=== PATIENT | female | born 1970 | race Caucasian/White ===

== ENCOUNTER 2020-05-10 13:59 | Inpatient (IN) ==
[2020-05-10] MEDS ORDERED: Naloxone 0.4 MG/ML INJ IVP PRN (17:53)
[2020-05-10] MEDS ORDERED: Dextrose Gel 15 GM/37.5 ML TUBE PO PRN ×2 (18:14)
[2020-05-10] MEDS ORDERED: *HR* Dextrose 50 % in Water (Vial) 50 ML VIAL IVP PRN (18:14)
[2020-05-10] MEDS ORDERED: D5% in Water 1,000 ML IVC PRN (18:14)
[2020-05-10 19:09] LABS: Basophils % 0.2 %; Eosinophils % 0.7 %; Hematocrit 27.6 % (35.3-44.9); Hemoglobin 8.7 g/dL (11.5-15.4); Lymphocytes # 1.5 K/mcL (0.6-4.6); Lymphocytes % 33.8 %; Mean Corpuscular HGB Conc 31.5 g/dL (31.6-35.5); Mean Corpuscular Hemoglobin 29.7 pg (28.0-33.3); Mean Corpuscular Volume 94.2 fL (83.0-100.0); Mean Platelet Volume 9.4 fL (9.4-12.4); Monocytes # 0.3 K/mcL (0.0-1.3); Monocytes % 6.7 %; Neutrophils # 2.6 K/mcL (1.6-8.9); Platelet Count 147 K/mcL (140-400); Red Blood Count 2.93 M/mcL (3.82-4.97); Red Cell Distribution Width 15.1 % (11.5-14.5); Segmented Neutrophils % 58.6 %; White Blood Count 4.5 K/mcL (4.3-11.1)
[2020-05-10 19:12] LABS: Albumin 3.8 g/dL (3.5-5.7); Albumin/Globulin Ratio 1.3 (1.1-2.2); Bilirubin,Total 0.5 mg/dL (0.3-1.0); Calcium 8.3 mg/dL (8.6-10.3); Magnesium 1.6 mg/dL (1.6-2.6); Phosphorous 4.6 mg/dL (2.7-4.5); Potassium 4.5 mEq/L (3.5-5.1); Total Protein 6.8 g/dL (6.4-8.9)
[2020-05-10 19:29] LABS: Triiodothyronine (T3) Free 1.97 pg/mL (2.50-3.90)
[2020-05-10 19:34] LABS: Prolactin 12.88 ng/mL (3.80-23.20)
[2020-05-10 19:36] LABS: Bacteria,Urine Few per hpf (None-Few); Bilirubin,Urine Negative (Negative); Blood,Urine Negative (Negative); Clarity,Urine Turbid (Clear); Color,Urine Light-Yellow (Yellow); Glucose,Urine (UA) Normal (Normal); Ketones,Urine Negative (Negative); Leukocyte Esterase,Urine Large (Negative); Mucus,Urine Few per lpf (None-Few); Nitrite,Urine Negative (Negative); Protein,Urine 30 mg/dL (Neg-Trace); Specific Gravity,Urine 1.009 (1.010-1.025); Squamous Epithelial Cell,Urine Few per hpf (None-Few); Urobilinogen,Urine Normal (Normal); WBC,Urine 30-50 per hpf (0-3)
[2020-05-10] MEDS: Insulin LISPRO 300 UNITS/3 ML VIAL SQ SCH (20:35)
[2020-05-10] MEDS: 0.9 % Sodium Chloride 1,000 ML IVC SCH (20:37)
[2020-05-10 21:49] LABS: Estimated Average Glucose 171 mg/dl
[2020-05-11 05:52] LABS: Basophils % 0.7 %; Eosinophils # 0.1 K/mcL (0.0-0.6); Eosinophils % 1.3 %; Hematocrit 24.9 % (35.3-44.9); Hemoglobin 7.8 g/dL (11.5-15.4); Immature Granulocytes % 0.2 % (0-4); Lymphocytes # 1.7 K/mcL (0.6-4.6); Lymphocytes % 36.7 %; Mean Corpuscular HGB Conc 31.3 g/dL (31.6-35.5); Mean Corpuscular Hemoglobin 29.7 pg (28.0-33.3); Mean Corpuscular Volume 94.7 fL (83.0-100.0); Mean Platelet Volume 9.2 fL (9.4-12.4); Monocytes # 0.3 K/mcL (0.0-1.3); Monocytes % 7.1 %; Neutrophils # 2.4 K/mcL (1.6-8.9); Platelet Count 131 K/mcL (140-400); Red Blood Count 2.63 M/mcL (3.82-4.97); Red Cell Distribution Width 15.2 % (11.5-14.5); White Blood Count 4.5 K/mcL (4.3-11.1)
[2020-05-11 06:10] LABS: Albumin 3.5 g/dL (3.5-5.7); Albumin/Globulin Ratio 1.3 (1.1-2.2); Bilirubin,Total 0.5 mg/dL (0.3-1.0); Calcium 8.3 mg/dL (8.6-10.3); Globulin 2.8 g/dL (2.4-3.5); Potassium 4.4 mEq/L (3.5-5.1); Total Protein 6.3 g/dL (6.4-8.9)
[2020-05-11] MEDS ORDERED: Ringers Solution, Lactated 1,000 ML IVC ONE (07:25)
[2020-05-11] MEDS: cefTRIAXone 1,000 MG in Water for inj. (sterile) 10 ML IVP SCH (07:36)
[2020-05-11] MEDS: Insulin LISPRO 300 UNITS/3 ML VIAL SQ SCH ×4 (07:37→20:42)
[2020-05-11] MEDS: Ringers Solution, Lactated 1,000 ML IVC SCH ×2 (08:38→14:03)
[2020-05-11 08:49] LABS: VBG HCO3 12 mEq/L (21-27); VBG PCO2 39 mmHg (41-51); VBG PO2 113 mmHg (25-50)
[2020-05-11 10:13] LABS: Uric Acid 6.1 mg/dL (2.3-7.6)
[2020-05-11] MEDS: Ondansetron 4 MG/2 ML VIAL IVP PRN (11:13)
[2020-05-11] MEDS ORDERED: Sodium Bicarbonate 75 MEQ in 0.45 % Sodium Chloride 1,000 ML IVC SCH (14:15)
[2020-05-11] MEDS: Folic Acid 1 MG TABLET PO SCH (15:26)
[2020-05-11] MEDS: Sodium Bicarbonate 75 MEQ in 0.45 % Sodium Chloride 1,000 ML IVC SCH (15:33)
[2020-05-12] MEDS: Sodium Bicarbonate 75 MEQ in 0.45 % Sodium Chloride 1,000 ML IVC SCH ×2 (02:47→15:55)
[2020-05-12] MEDS: Levothyroxine 25 MCG TABLET PO SCH (06:05)
[2020-05-12 06:08] LABS: Hematocrit 24.9 % (35.3-44.9); Hemoglobin 7.9 g/dL (11.5-15.4); Mean Corpuscular HGB Conc 31.7 g/dL (31.6-35.5); Mean Corpuscular Hemoglobin 29.6 pg (28.0-33.3); Mean Corpuscular Volume 93.3 fL (83.0-100.0); Mean Platelet Volume 9.4 fL (9.4-12.4); Platelet Count 129 K/mcL (140-400); Red Blood Count 2.67 M/mcL (3.82-4.97); Red Cell Distribution Width 15.1 % (11.5-14.5)
[2020-05-12 06:28] LABS: Calcium 8.2 mg/dL (8.6-10.3); Magnesium 1.3 mg/dL (1.6-2.6); Phosphorous 5.1 mg/dL (2.7-4.5)
[2020-05-12 06:29] LABS: % Iron Saturation 23 % (15-50); Iron 68 mcg/dL (50-170); Transferrin 213 mg/dL (203-362)
[2020-05-12] MEDS: Folic Acid 1 MG TABLET PO SCH (07:09)
[2020-05-12 07:24] LABS: Folate 14.2 ng/mL (3.0-16.0)
[2020-05-12 09:00] LABS: Protein/Creatinine Ratio,Urine 0.9 mg/mg (0.00-0.20); Sodium, Urine 102.2 mEq/L
[2020-05-12] MEDS: cefTRIAXone 1,000 MG in Water for inj. (sterile) 10 ML IVP SCH (09:14)
[2020-05-12] MEDS: Insulin LISPRO 300 UNITS/3 ML VIAL SQ SCH ×4 (10:10→21:10)
[2020-05-12] MEDS: Acetaminophen 325 MG TABLET PO PRN ×2 (10:21→21:09)
[2020-05-12 10:22] LABS: Complement C3 103 mg/dL (87-200)
[2020-05-12] MEDS ORDERED: Sodium Bicarbonate 75 MEQ in 0.45 % Sodium Chloride 1,000 ML IVC SCH (10:45)
[2020-05-12] MEDS: 0.9 % Sodium Chloride 1,000 ML IVC SCH (10:56)
[2020-05-12] MEDS ORDERED: Ergocalciferol (VIT D2) 50,000 UNIT (1.25MG) CAP PO SCH (12:41)
[2020-05-12] MEDS: Ondansetron 4 MG/2 ML VIAL IVP PRN (21:09)
[2020-05-13] MEDS: Levothyroxine 25 MCG TABLET PO SCH (06:05)
[2020-05-13] MEDS: Insulin LISPRO 300 UNITS/3 ML VIAL SQ SCH ×4 (07:09→20:37)
[2020-05-13] MEDS: Folic Acid 1 MG TABLET PO SCH (07:09)
[2020-05-13] MEDS: Acetaminophen 325 MG TABLET PO PRN ×2 (07:13→20:01)
[2020-05-13 08:54] LABS: Hematocrit 24.8 % (35.3-44.9); Mean Corpuscular HGB Conc 32.3 g/dL (31.6-35.5); Mean Corpuscular Hemoglobin 29.5 pg (28.0-33.3); Mean Corpuscular Volume 91.5 fL (83.0-100.0); Mean Platelet Volume 9.2 fL (9.4-12.4); Platelet Count 139 K/mcL (140-400); Red Blood Count 2.71 M/mcL (3.82-4.97); White Blood Count 4.5 K/mcL (4.3-11.1)
[2020-05-13] MEDS: cefTRIAXone 1,000 MG in Water for inj. (sterile) 10 ML IVP SCH (08:55)
[2020-05-13 08:56] LABS: Prothrombin Time 11.4 Seconds (9.4-12.1)
[2020-05-13 08:57] LABS: Prothrombin Time 11.4 Seconds (9.4-12.1)
[2020-05-13 09:10] LABS: Calcium 8.8 mg/dL (8.6-10.3); Potassium 3.7 mEq/L (3.5-5.1)
[2020-05-13 09:11] LABS: Calcium 8.7 mg/dL (8.6-10.3); Magnesium 2.2 mg/dL (1.6-2.6); Phosphorous 4.8 mg/dL (2.7-4.5); Potassium 3.8 mEq/L (3.5-5.1)
[2020-05-13] MEDS ORDERED: 0.9 % Sodium Chloride 500 ML ONE (11:49)
[2020-05-13] MEDS ORDERED: *HR* FentaNYL (PF) 100 MCG/2 ML VIAL ONE (12:03)
[2020-05-13] MEDS ORDERED: *HR* Midazolam HCl 2 MG/2 ML VIAL ONE (12:04)
[2020-05-13] MEDS ORDERED: *HR* FentaNYL (PF) 100 MCG/2 ML VIAL IVP ONE (12:04)
[2020-05-13] MEDS ORDERED: *HR* Midazolam HCl 2 MG/2 ML VIAL IVP ONE (12:04)
[2020-05-13] MEDS: Ondansetron 4 MG/2 ML VIAL IVP PRN (12:42)
[2020-05-13] MEDS: amLODIPine 5 MG TABLET PO SCH (14:40)
[2020-05-13] MEDS ORDERED: *HR* HYDROcodone/Acet 5/325 mg TABLET PO ONE (17:06)
[2020-05-14 01:45] LABS: Hematocrit 23.9 % (35.3-44.9); Hemoglobin 7.8 g/dL (11.5-15.4); Mean Corpuscular HGB Conc 32.6 g/dL (31.6-35.5); Mean Corpuscular Hemoglobin 29.9 pg (28.0-33.3); Mean Corpuscular Volume 91.6 fL (83.0-100.0); Mean Platelet Volume 9.7 fL (9.4-12.4); Platelet Count 153 K/mcL (140-400); Red Blood Count 2.61 M/mcL (3.82-4.97); Red Cell Distribution Width 15.1 % (11.5-14.5); White Blood Count 4.4 K/mcL (4.3-11.1)
[2020-05-14 01:59] LABS: Calcium 8.7 mg/dL (8.6-10.3); Phosphorous 4.9 mg/dL (2.7-4.5); Potassium 3.8 mEq/L (3.5-5.1)
[2020-05-14] MEDS: Levothyroxine 25 MCG TABLET PO SCH (06:41)
[2020-05-14] MEDS: amLODIPine 5 MG TABLET PO SCH (08:17)
[2020-05-14] MEDS: Folic Acid 1 MG TABLET PO SCH (08:17)
[2020-05-14] MEDS: Insulin LISPRO 300 UNITS/3 ML VIAL SQ SCH (08:19)
[2020-05-14] MEDS ORDERED: Cefdinir 300 MG CAPSULE PO SCH (09:00)
[2020-05-14 10:32] VITALS: BP 155/84
[2020-05-14] MEDS: Ondansetron 4 MG/2 ML VIAL IVP PRN (10:41)
== END 2020-05-14 11:23 | disposition home or self-care (01) | DRG 469 ==
LOC: 2ANU → SUATTDRO 15:39
PROVIDERS: ADMIT Family Medicine; ATTEND Family Medicine

== ENCOUNTER 2020-09-10 16:29 | Observation (INO) ==
[2020-09-10] MEDS ORDERED: Ondansetron 4 MG/2 ML VIAL IVP PRN (20:06)
[2020-09-10] MEDS ORDERED: Acetaminophen 325 MG TABLET PO PRN (20:06)
[2020-09-10] MEDS ORDERED: Naloxone 0.4 MG/ML INJ IVP PRN (20:06)
[2020-09-10] MEDS ORDERED: *HR* HYDROcodone/Acet 5/325 mg TABLET PO PRN (20:06)
[2020-09-10 20:32] LABS: Basophils % 0.4 %; Hematocrit 29.4 % (35.3-44.9); Hemoglobin 9.6 g/dL (11.5-15.4); Immature Granulocytes % 0.3 % (0-4); Lymphocytes # 0.7 K/mcL (0.6-4.6); Lymphocytes % 10.2 %; Mean Corpuscular HGB Conc 32.7 g/dL (31.6-35.5); Mean Corpuscular Volume 91.9 fL (83.0-100.0); Mean Platelet Volume 9.4 fL (9.4-12.4); Monocytes # 0.1 K/mcL (0.0-1.3); Monocytes % 2.1 %; Neutrophils # 5.8 K/mcL (1.6-8.9); Platelet Count 162 K/mcL (140-400); Red Cell Distribution Width 13.7 % (11.5-14.5); White Blood Count 6.7 K/mcL (4.3-11.1)
[2020-09-10 20:34] LABS: VBG HCO3 14 mEq/L (21-27); VBG PCO2 29 mmHg (41-51); VBG PH 7.28 pH Units (7.32-7.42); VBG PO2 148 mmHg (25-50)
[2020-09-10] MEDS ORDERED: D5% in 0.45% NACL 1,000 ML IVC PRN (20:34)
[2020-09-10 20:36] LABS: Prothrombin Time 12.1 Seconds (9.4-12.1)
[2020-09-10] MEDS ORDERED: Insulin Human Regular 100 UNIT in 0.9 % Sodium Chloride 100 ML IVC SCH (20:45)
[2020-09-10 20:55] LABS: Alanine Aminotransferase 11 Units/L (7-52); Albumin 4.2 g/dL (3.5-5.7); Albumin/Globulin Ratio 1.2 (1.1-2.2); Alkaline Phosphatase 106 Units/L (34-104); Aspartate Amino Transferase 10 Units/L (13-39); BUN/Creatinine Ratio 16 (6-26); Bilirubin,Total 0.6 mg/dL (0.3-1.0); Blood Urea Nitrogen 44 mg/dL (6-20); Carbon Dioxide 12 mEq/L (23-29); Chloride 116 mEq/L (98-107); Cholesterol 173 mg/dL (< 200); Globulin 3.5 g/dL (2.4-3.5); Glucose 147 mg/dL (70-105); HDL Cholesterol 57 mg/dL (40-59); LDL Cholesterol,Calculated 91 mg/dL (< 100); Magnesium 1.3 mg/dL (1.6-2.6); Osmolality,Calculated 304 (280-300); Potassium 3.7 mEq/L (3.5-5.1); Sodium 140 mEq/L (136-145); Total Protein 7.7 g/dL (6.4-8.9); Triglycerides 127 mg/dL (< 150); Troponin I < 0.03 ng/mL (< 0.04); eGFR For African Americans 22 (> 60); eGFR For Non-African Americans 18 (> 60)
[2020-09-10] MEDS: D5% in 0.45% NACL w KCl 20 MEQ/1,000 ML MLS IVC PRN (21:43)
[2020-09-10] MEDS: *HR* Heparin 5,000 UNIT/ML VIAL SQ SCH (21:52)
[2020-09-10] MEDS ORDERED: Metoclopramide 10 MG/2 ML VIAL IVP PRN (22:02)
[2020-09-10 22:32] LABS: Calcium 8.9 mg/dL (8.6-10.3); Potassium 3.9 mEq/L (3.5-5.1)
[2020-09-11 01:16] LABS: Basophils % 0.2 %; Hematocrit 25.6 % (35.3-44.9); Hemoglobin 8.3 g/dL (11.5-15.4); Immature Granulocytes % 0.5 % (0-4); Lymphocytes # 0.8 K/mcL (0.6-4.6); Mean Corpuscular HGB Conc 32.4 g/dL (31.6-35.5); Mean Corpuscular Hemoglobin 29.5 pg (28.0-33.3); Mean Corpuscular Volume 91.1 fL (83.0-100.0); Mean Platelet Volume 9.8 fL (9.4-12.4); Monocytes # 0.3 K/mcL (0.0-1.3); Monocytes % 3.6 %; Neutrophils # 7.1 K/mcL (1.6-8.9); Platelet Count 159 K/mcL (140-400); Red Blood Count 2.81 M/mcL (3.82-4.97); Red Cell Distribution Width 13.7 % (11.5-14.5); Segmented Neutrophils % 85.7 %; White Blood Count 8.2 K/mcL (4.3-11.1)
[2020-09-11 01:33] LABS: Calcium 8.5 mg/dL (8.6-10.3); Potassium 3.4 mEq/L (3.5-5.1)
[2020-09-11] MEDS: D5% in 0.45% NACL w KCl 20 MEQ/1,000 ML MLS IVC PRN ×3 (01:55→11:22)
[2020-09-11 03:22] LABS: Calcium 8.7 mg/dL (8.6-10.3); Potassium 3.4 mEq/L (3.5-5.1)
[2020-09-11] MEDS: *HR* Dextrose 50 % in Water (Vial) 50 ML VIAL IVP PRN ×2 (03:27→05:28)
[2020-09-11] MEDS: *HR* Heparin 5,000 UNIT/ML VIAL SQ SCH ×3 (06:19→21:00)
[2020-09-11 06:41] LABS: VBG HCO3 15 mEq/L (21-27); VBG PCO2 32 mmHg (41-51); VBG PH 7.27 pH Units (7.32-7.42); VBG PO2 183 mmHg (25-50)
[2020-09-11 07:03] LABS: Calcium 8.5 mg/dL (8.6-10.3); Potassium 4.1 mEq/L (3.5-5.1)
[2020-09-11] MEDS: 0.45 % Sodium Chloride w/KCl 20 MEQ/1,000 ML MLS IVC SCH ×3 (08:04→13:14)
[2020-09-11 10:40] LABS: VBG HCO3 15 mEq/L (21-27); VBG PCO2 37 mmHg (41-51); VBG PH 7.21 pH Units (7.32-7.42); VBG PO2 193 mmHg (25-50)
[2020-09-11 10:54] LABS: Calcium 8.2 mg/dL (8.6-10.3); Potassium 4.2 mEq/L (3.5-5.1)
[2020-09-11] MEDS ORDERED: 0.9 % Sodium Chloride 1,000 ML IVC SCH (12:00)
[2020-09-11] MEDS: Insulin DETEMIR 100 UNIT/ML X5UNITS SUBQ SCH (13:08)
[2020-09-11] MEDS ORDERED: Dextrose Gel 15 GM/37.5 ML TUBE PO PRN ×2 (13:16)
[2020-09-11] MEDS ORDERED: *HR* Dextrose 50 % in Water (Vial) 50 ML VIAL IVP PRN (13:16)
[2020-09-11] MEDS ORDERED: D5% in Water 1,000 ML IVC PRN (13:16)
[2020-09-11 15:03] LABS: Calcium 8.2 mg/dL (8.6-10.3); Potassium 4.2 mEq/L (3.5-5.1)
[2020-09-11] MEDS: Insulin LISPRO 300 UNITS/3 ML VIAL SUBQ SCH (16:04)
[2020-09-11] MEDS ORDERED: Insulin LISPRO 300 UNITS/3 ML VIAL SUBQ SCH (21:00)
[2020-09-12] MEDS: *HR* Heparin 5,000 UNIT/ML VIAL SQ SCH (07:01)
[2020-09-12] MEDS: Insulin LISPRO 300 UNITS/3 ML VIAL SUBQ SCH ×2 (08:05→08:37)
[2020-09-12 08:09] LABS: Basophils % 0.6 %; Eosinophils # 0.1 K/mcL (0.0-0.6); Hematocrit 26.5 % (35.3-44.9); Hemoglobin 8.1 g/dL (11.5-15.4); Immature Granulocytes % 0.1 % (0-4); Lymphocytes # 2.5 K/mcL (0.6-4.6); Lymphocytes % 37.5 %; Mean Corpuscular HGB Conc 30.6 g/dL (31.6-35.5); Mean Corpuscular Hemoglobin 29.3 pg (28.0-33.3); Mean Platelet Volume 9.1 fL (9.4-12.4); Monocytes # 0.5 K/mcL (0.0-1.3); Monocytes % 7.2 %; Neutrophils # 3.6 K/mcL (1.6-8.9); Platelet Count 131 K/mcL (140-400); Red Blood Count 2.76 M/mcL (3.82-4.97); Segmented Neutrophils % 53.6 %; White Blood Count 6.8 K/mcL (4.3-11.1)
[2020-09-12 08:28] LABS: Calcium 8.7 mg/dL (8.6-10.3); Potassium 4.3 mEq/L (3.5-5.1)
[2020-09-12] MEDS: Insulin DETEMIR 100 UNIT/ML X5UNITS SUBQ SCH (08:36)
[2020-09-12 09:15] LABS: Estimated Average Glucose 189 mg/dl; Hemoglobin A1C 8.2 %
[2020-09-12 10:51] VITALS: BP 151/85
== END 2020-09-12 13:06 | disposition home or self-care (01) ==
LOC: 2NNU
PROVIDERS: ADMIT Internal Medicine; ATTEND Internal Medicine

== ENCOUNTER 2022-01-15 18:32 | Inpatient (IN) ==
[2022-01-15 22:48] LABS: VBG HCO3 8 mEq/L (21-27); VBG PCO2 34 mmHg (41-51); VBG PH 6.99 pH Units (7.32-7.42); VBG PO2 40 mmHg (25-50)
[2022-01-15 22:58] LABS: Calcium 9.3 mg/dL (8.6-10.3); Potassium 5.4 mEq/L (3.5-5.1)
[2022-01-15] MEDS ORDERED: Ringers Solution, Lactated 1,000 ML IVC ONE (23:34)
[2022-01-16] MEDS: Sodium Bicarbonate 150 MEQ in Water for inj. (sterile) 1,000 ML IVC SCH ×3 (01:05→20:20)
[2022-01-16] MEDS ORDERED: Acetaminophen 325 MG TABLET PO PRN (02:28)
[2022-01-16] MEDS ORDERED: Melatonin 3 MG TABLET PO PRN (02:28)
[2022-01-16] MEDS ORDERED: Naloxone 0.4 MG/ML INJ IVP PRN (02:28)
[2022-01-16] MEDS ORDERED: Ringers Solution, Lactated 1,000 ML IVC ONE ×2 (02:36→04:46)
[2022-01-16] MEDS ORDERED: Calcium Gluconate 1gm/50mL 1 GM/50 ML BAG IVPB ONE (02:36)
[2022-01-16] MEDS: Ondansetron 4 MG/2 ML VIAL IVP PRN (03:12)
[2022-01-16 03:40] LABS: Basophils % 0.7 %; Eosinophils # 0.1 K/mcL (0.0-0.6); Eosinophils % 1.8 %; Hematocrit 32.3 % (35.3-44.9); Immature Granulocytes % 0.2 % (0-4); Lymphocytes # 1.4 K/mcL (0.6-4.6); Lymphocytes % 23.3 %; Mean Corpuscular Hemoglobin 29.5 pg (28.0-33.3); Mean Corpuscular Volume 95.3 fL (83.0-100.0); Mean Platelet Volume 9.7 fL (9.4-12.4); Monocytes # 0.3 K/mcL (0.0-1.3); Monocytes % 5.6 %; Neutrophils # 4.2 K/mcL (1.6-8.9); Platelet Count 132 K/mcL (140-400); Red Blood Count 3.39 M/mcL (3.82-4.97); Red Cell Distribution Width 15.9 % (11.5-14.5); Segmented Neutrophils % 68.4 %; White Blood Count 6.1 K/mcL (4.3-11.1)
[2022-01-16 03:51] LABS: INR 1.1; Prothrombin Time 11.7 Seconds (9.4-12.1)
[2022-01-16 04:00] LABS: Albumin 3.8 g/dL (3.5-5.7); Albumin/Globulin Ratio 1.2 (1.1-2.2); Bilirubin,Total 0.9 mg/dL (0.3-1.0); Calcium 8.7 mg/dL (8.6-10.3); Globulin 3.1 g/dL (2.4-3.5); Magnesium 1.9 mg/dL (1.6-2.6); Phosphorous 5.7 mg/dL (2.7-4.5); Potassium 4.4 mEq/L (3.5-5.1); Total Protein 6.9 g/dL (6.4-8.9)
[2022-01-16] MEDS ORDERED: Dextrose Gel 15 GM/37.5 ML TUBE PO PRN ×2 (04:45)
[2022-01-16] MEDS ORDERED: *HR* Dextrose 50 % in Water (Syg) 50 ML SYRINGE IVP PRN (04:45)
[2022-01-16] MEDS ORDERED: D5% in Water 1,000 ML IVC PRN (04:45)
[2022-01-16] MEDS: Insulin LISPRO 300 UNITS/3 ML VIAL SUBQ SCH ×4 (07:22→21:05)
[2022-01-16 07:42] LABS: Bacteria,Urine Few per hpf (None-Few); Bilirubin,Urine Negative (Negative); Blood,Urine Negative (Negative); Clarity,Urine Clear (Clear); Color,Urine Colorless (Yellow); Glucose,Urine (UA) Normal (Normal); Ketones,Urine Negative (Negative); Leukocyte Esterase,Urine Large (Negative); Mucus,Urine Few per lpf (None-Few); Nitrite,Urine Negative (Negative); Protein,Urine Trace mg/dL (Neg-Trace); RBC,Urine 0-3 per hpf (0-3); Specific Gravity,Urine 1.007 (1.010-1.025); Squamous Epithelial Cell,Urine Moderate per hpf (None-Few); Urobilinogen,Urine Normal (Normal); WBC,Urine 30-50 per hpf (0-3)
[2022-01-16 08:01] LABS: Sodium, Urine 64.4 mEq/L
[2022-01-16 10:28] LABS: Calcium 8.4 mg/dL (8.6-10.3); Potassium 3.6 mEq/L (3.5-5.1)
[2022-01-16 16:11] LABS: Adenovirus F 40/41 PCR Not detected (Not detect); Astrovirus PCR Not detected (Not detect); C.difficile Toxin A/B Gene PCR Not detected (Not detect); Campylobacter by PCR Not detected (Not detect); Cryptosporidium by PCR Not detected (Not detect); Cyclospora cayetanensis PCR Not detected (Not detect); Entamoeba histolytica PCR Not detected (Not detect); Enteroaggregative E.coli(EAEC) Not detected (Not detect); Enteropathogenic E.coli(EPEC) Not detected (Not detect); Enterotoxigenic E.coli (ETEC) Not detected (Not detect); Giardia lamblia PCR Not detected (Not detect); Norovirus GI/GII PCR Not detected (Not detect); Plesiomonas shigelloides PCR Not detected (Not detect); Rotavirus A PCR Not detected (Not detect); Salmonella PCR Not detected (Not detect); Sapovirus PCR Not detected (Not detect); Shig/EnteroinvasiveE coli EIEC Not detected (Not detect); Shigalike tox-prod E coli STEC Not detected (Not detect); Vibrio PCR Not detected (Not detect); Vibrio cholerae PCR Not detected (Not detect); Yersinia enterocolitica PCR Not detected (Not detect)
[2022-01-17] MEDS: Insulin LISPRO 300 UNITS/3 ML VIAL SUBQ SCH ×3 (05:29→16:46)
[2022-01-17 05:33] LABS: Basophils # 0.1 K/mcL (0.0-0.2); Basophils % 0.8 %; Eosinophils # 0.1 K/mcL (0.0-0.6); Eosinophils % 1.6 %; Hematocrit 28.7 % (35.3-44.9); Hemoglobin 9.2 g/dL (11.5-15.4); Immature Granulocytes % 0.3 % (0-4); Lymphocytes # 2.1 K/mcL (0.6-4.6); Lymphocytes % 32.8 %; Mean Corpuscular HGB Conc 32.1 g/dL (31.6-35.5); Mean Corpuscular Hemoglobin 29.1 pg (28.0-33.3); Mean Corpuscular Volume 90.8 fL (83.0-100.0); Mean Platelet Volume 10.1 fL (9.4-12.4); Monocytes # 0.5 K/mcL (0.0-1.3); Monocytes % 8.6 %; Neutrophils # 3.5 K/mcL (1.6-8.9); Platelet Count 120 K/mcL (140-400); Red Blood Count 3.16 M/mcL (3.82-4.97); Red Cell Distribution Width 15.4 % (11.5-14.5); Segmented Neutrophils % 55.9 %; White Blood Count 6.3 K/mcL (4.3-11.1)
[2022-01-17 05:41] LABS: VBG HCO3 27 mEq/L (21-27); VBG PCO2 37 mmHg (41-51); VBG PH 7.47 pH Units (7.32-7.42); VBG PO2 209 mmHg (25-50)
[2022-01-17 05:47] LABS: Phosphorous 4.1 mg/dL (2.7-4.5); Potassium 3.1 mEq/L (3.5-5.1)
[2022-01-17] MEDS: Sodium Bicarbonate 150 MEQ in Water for inj. (sterile) 1,000 ML IVC SCH ×2 (05:51→16:49)
[2022-01-17] MEDS: Levothyroxine 25 MCG TABLET PO SCH (05:51)
[2022-01-17] MEDS: Cyanocobalamin (B-12) 1,000 MCG TABLET PO SCH (08:46)
[2022-01-17] MEDS: Ondansetron 4 MG/2 ML VIAL IVP PRN (11:14)
[2022-01-17] MEDS: 0.9 % Sodium Chloride 1,000 ML IVC SCH (12:33)
[2022-01-17] MEDS ORDERED: Ondansetron 4 MG/2 ML VIAL IVP PRN (14:42)
[2022-01-17] MEDS ORDERED: *HR* Promethazine 25 MG/ML VIAL IM PRN (14:42)
[2022-01-17] MEDS ORDERED: Insulin LISPRO 300 UNITS/3 ML VIAL SUBQ SCH (21:00)
[2022-01-18] MEDS: 0.9 % Sodium Chloride 1,000 ML IVC SCH (01:21)
[2022-01-18 05:41] LABS: Hematocrit 30.2 % (35.3-44.9); Hemoglobin 9.2 g/dL (11.5-15.4); Mean Corpuscular HGB Conc 30.5 g/dL (31.6-35.5); Mean Corpuscular Hemoglobin 28.8 pg (28.0-33.3); Mean Corpuscular Volume 94.7 fL (83.0-100.0); Mean Platelet Volume 10.8 fL (9.4-12.4); Platelet Count 104 K/mcL (140-400); Red Blood Count 3.19 M/mcL (3.82-4.97); Red Cell Distribution Width 15.2 % (11.5-14.5); White Blood Count 6.5 K/mcL (4.3-11.1)
[2022-01-18] MEDS: Levothyroxine 25 MCG TABLET PO SCH (05:41)
[2022-01-18 05:58] LABS: Calcium 8.3 mg/dL (8.6-10.3); Magnesium 1.4 mg/dL (1.6-2.6); Phosphorous 3.5 mg/dL (2.7-4.5); Potassium 3.4 mEq/L (3.5-5.1)
[2022-01-18 07:12] VITALS: BP 142/75; PULSE 73; TEMP 98.2; O2SAT 98
[2022-01-18] MEDS: Insulin LISPRO 300 UNITS/3 ML VIAL SUBQ SCH (07:51)
[2022-01-18] MEDS: Cyanocobalamin (B-12) 1,000 MCG TABLET PO SCH (07:52)
[2022-01-18] MEDS ORDERED: Potassium Chloride Elixir 20 MEQ/15 ML UDC PO ONE (08:13)
[2022-01-18] MEDS ORDERED: cephALEXin 500 MG CAPSULE PO SCH (09:45)
== END 2022-01-18 12:39 | disposition home or self-care (01) | DRG 470 ==
LOC: 2NNU 18:32 → EMEROOARM 18:32 → SUATTDRO 01-16 01:02 → 2NNU 01-16 01:37 → SUATTDRO 01-16 08:02 → 2ANU 01-16 11:01
PROVIDERS: ADMIT Internal Medicine; ATTEND Student in an Organized Health Care Education/Training Program

== ENCOUNTER 2022-02-11 14:20 | Inpatient (IN) ==
[2022-02-11 15:18] LABS: Bacteria,Urine Few per hpf (None-Few); Bilirubin,Urine Negative (Negative); Blood,Urine Trace (Negative); Clarity,Urine Turbid (Clear); Color,Urine Light-Yellow (Yellow); Glucose,Urine (UA) >=1000 mg/dL (Normal); Ketones,Urine Trace mg/dL (Negative); Leukocyte Esterase,Urine Moderate (Negative); Mucus,Urine Few per lpf (None-Few); Nitrite,Urine Negative (Negative); Protein,Urine 100 mg/dL (Neg-Trace); RBC,Urine 0-3 per hpf (0-3); Specific Gravity,Urine 1.009 (1.010-1.025); Squamous Epithelial Cell,Urine Few per hpf (None-Few); Urobilinogen,Urine Normal (Normal); WBC,Urine 15-30 per hpf (0-3)
[2022-02-11 15:55] LABS: Basophils % 0.4 %; Hematocrit 35.4 % (35.3-44.9); Hemoglobin 10.5 g/dL (11.5-15.4); Immature Granulocytes % 0.5 % (0-4); Lymphocytes # 0.6 K/mcL (0.6-4.6); Mean Corpuscular HGB Conc 29.7 g/dL (31.6-35.5); Mean Corpuscular Hemoglobin 29.3 pg (28.0-33.3); Mean Corpuscular Volume 98.9 fL (83.0-100.0); Mean Platelet Volume 10.5 fL (9.4-12.4); Monocytes # 0.2 K/mcL (0.0-1.3); Monocytes % 1.8 %; Neutrophils # 7.6 K/mcL (1.6-8.9); Nucleated Red Blood Cells 0.2 /100 WBC (0); Platelet Count 150 K/mcL (140-400); Red Blood Count 3.58 M/mcL (3.82-4.97); Red Cell Distribution Width 14.1 % (11.5-14.5); Segmented Neutrophils % 90.3 %; White Blood Count 8.4 K/mcL (4.3-11.1)
[2022-02-11 16:30] LABS: Calcium 9.1 mg/dL (8.6-10.3); Potassium 4.7 mEq/L (3.5-5.1)
[2022-02-11] MEDS ORDERED: Ringers Solution, Lactated 2,000 ML IVC ONE (16:47)
[2022-02-11] MEDS ORDERED: Ondansetron 4 MG/2 ML VIAL ONE (17:01)
[2022-02-11] MEDS ORDERED: Ondansetron 4 MG/2 ML VIAL IVP ONE (17:15)
[2022-02-11 17:37] LABS: VBG HCO3 8 mEq/L (21-27); VBG PCO2 32 mmHg (41-51); VBG PH 7.03 pH Units (7.32-7.42); VBG PO2 75 mmHg (25-50)
[2022-02-11 18:43] LABS: Albumin 4.4 g/dL (3.5-5.7); Albumin/Globulin Ratio 1.3 (1.1-2.2); Bilirubin,Direct 0.2 mg/dL (0.0-0.2); Bilirubin,Indirect 0.6 mg/dL (0.0-1.0); Bilirubin,Total 0.8 mg/dL (0.3-1.0); Globulin 3.3 g/dL (2.4-3.5); Total Protein 7.7 g/dL (6.4-8.9)
[2022-02-11 18:51] LABS: Influenza A PCR Negative (Negative); Influenza B PCR Negative (Negative); Resp. Syncytial Virus PCR Negative (Negative)
[2022-02-11 18:54] LABS: SARS-CoV-2 by PCR (In House) Negative (Negative)
[2022-02-11] MEDS ORDERED: Insulin Regular, Human 100 UNIT/ML IV ONE (18:54)
[2022-02-11] MEDS ORDERED: *HR* Dextrose 50 % in Water (Syg) 50 ML SYRINGE IVP PRN ×2 (18:54→20:04)
[2022-02-11] MEDS ORDERED: Metoclopramide 10 MG/2 ML VIAL IVP ONE (18:59)
[2022-02-11] MEDS ORDERED: 0.45 % Sodium Chloride w/KCl 20 MEQ/1,000 ML MLS IVC SCH (19:00)
[2022-02-11] MEDS ORDERED: cefTRIAXone 2,000 MG in 0.9 % Sodium Chloride 20 ML IVP ONE (19:20)
[2022-02-11] MEDS ORDERED: Ondansetron 4 MG/2 ML VIAL IVP PRN (19:54)
[2022-02-11] MEDS ORDERED: Naloxone 0.4 MG/ML INJ IVP PRN (19:54)
[2022-02-11 19:59] LABS: VBG HCO3 11 mEq/L (21-27); VBG PCO2 26 mmHg (41-51); VBG PH 7.23 pH Units (7.32-7.42); VBG PO2 121 mmHg (25-50)
[2022-02-11] MEDS ORDERED: Insulin Regular, Human 100 UNIT/ML IV PRN (20:04)
[2022-02-11 20:10] LABS: Calcium 8.3 mg/dL (8.6-10.3); Potassium 4.1 mEq/L (3.5-5.1)
[2022-02-11 23:02] LABS: Calcium 8.3 mg/dL (8.6-10.3); Potassium 3.6 mEq/L (3.5-5.1)
[2022-02-12] MEDS ORDERED: D5% in 0.45% NACL w KCl 20 MEQ/1,000 ML MLS IVC PRN (00:26)
[2022-02-12] MEDS: D5% in 0.45% NACL w KCl 20 MEQ/1,000 ML MLS IVC SCH ×2 (00:38→07:26)
[2022-02-12 03:08] LABS: Basophils % 0.2 %; Hematocrit 28.3 % (35.3-44.9); Immature Granulocytes % 0.3 % (0-4); Lymphocytes # 1.5 K/mcL (0.6-4.6); Lymphocytes % 15.2 %; Mean Corpuscular HGB Conc 30.7 g/dL (31.6-35.5); Mean Corpuscular Hemoglobin 29.1 pg (28.0-33.3); Mean Corpuscular Volume 94.6 fL (83.0-100.0); Mean Platelet Volume 11.3 fL (9.4-12.4); Monocytes # 0.8 K/mcL (0.0-1.3); Monocytes % 8.4 %; Neutrophils # 7.3 K/mcL (1.6-8.9); Nucleated Red Blood Cells 0.4 /100 WBC (0); Platelet Count 123 K/mcL (140-400); Red Blood Count 2.99 M/mcL (3.82-4.97); Segmented Neutrophils % 75.9 %; White Blood Count 9.7 K/mcL (4.3-11.1)
[2022-02-12 03:10] LABS: Hemoglobin 8.7 g/dL (11.5-15.4)
[2022-02-12 03:22] LABS: Calcium 8.2 mg/dL (8.6-10.3)
[2022-02-12] MEDS: Levothyroxine 25 MCG TABLET PO SCH (05:28)
[2022-02-12] MEDS: *HR* Heparin 5,000 UNIT/ML VIAL SQ SCH ×3 (05:28→19:56)
[2022-02-12 06:52] LABS: VBG HCO3 11 mEq/L (21-27); VBG PCO2 25 mmHg (41-51); VBG PH 7.24 pH Units (7.32-7.42); VBG PO2 113 mmHg (25-50)
[2022-02-12 09:11] LABS: Basophils % 0.4 %; Eosinophils % 0.2 %; Hematocrit 27.3 % (35.3-44.9); Hemoglobin 8.3 g/dL (11.5-15.4); Immature Granulocytes % 0.4 % (0-4); Lymphocytes # 1.7 K/mcL (0.6-4.6); Lymphocytes % 19.3 %; Mean Corpuscular HGB Conc 30.4 g/dL (31.6-35.5); Mean Corpuscular Hemoglobin 29.3 pg (28.0-33.3); Mean Corpuscular Volume 96.5 fL (83.0-100.0); Mean Platelet Volume 9.9 fL (9.4-12.4); Monocytes # 0.6 K/mcL (0.0-1.3); Monocytes % 6.5 %; Neutrophils # 6.3 K/mcL (1.6-8.9); Platelet Count 134 K/mcL (140-400); Red Blood Count 2.83 M/mcL (3.82-4.97); Red Cell Distribution Width 14.4 % (11.5-14.5); Segmented Neutrophils % 73.2 %; White Blood Count 8.6 K/mcL (4.3-11.1)
[2022-02-12] MEDS: cefTRIAXone 1,000 MG in 0.9 % Sodium Chloride 10 ML IVP SCH (09:11)
[2022-02-12 09:27] LABS: Albumin/Globulin Ratio 1.2 (1.1-2.2); Bilirubin,Total 0.5 mg/dL (0.3-1.0); Calcium 7.4 mg/dL (8.6-10.3); Globulin 2.6 g/dL (2.4-3.5); Magnesium 0.9 mg/dL (1.6-2.6); Phosphorous 2.9 mg/dL (2.7-4.5); Potassium 5.5 mEq/L (3.5-5.1); Total Protein 5.6 g/dL (6.4-8.9)
[2022-02-12 10:31] LABS: Calcium 8.3 mg/dL (8.6-10.3); Magnesium 1.1 mg/dL (1.6-2.6); Potassium 4.4 mEq/L (3.5-5.1)
[2022-02-12] MEDS ORDERED: Dextrose Gel 15 GM/37.5 ML TUBE PO PRN ×2 (10:36)
[2022-02-12] MEDS ORDERED: *HR* Dextrose 50 % in Water (Syg) 50 ML SYRINGE IVP PRN (10:36)
[2022-02-12] MEDS ORDERED: D5% in Water 1,000 ML IVC PRN (10:36)
[2022-02-12] MEDS: Insulin LISPRO 300 UNITS/3 ML VIAL SUBQ SCH ×3 (11:52→17:36)
[2022-02-12] MEDS: Insulin DETEMIR 100 UNIT/ML X5UNITS SUBQ SCH (12:14)
[2022-02-12] MEDS: Sodium Bicarbonate 75 MEQ in 0.45 % Sodium Chloride 1,000 ML IVC SCH ×2 (12:16→22:58)
[2022-02-12] MEDS ORDERED: Ondansetron 4 MG/2 ML VIAL IVP PRN (15:22)
[2022-02-12] MEDS: *HR* Promethazine 25 MG/ML VIAL IM PRN (15:40)
[2022-02-12 16:10] LABS: Estimated Average Glucose 166 mg/dl; Hemoglobin A1C 7.4 %
[2022-02-12] MEDS ORDERED: *HR* Promethazine 25 MG/ML VIAL IM ONE (17:46)
[2022-02-12] MEDS: Prochlorperazine 10 MG/2 ML VIAL IM PRN (21:06)
[2022-02-12] MEDS ORDERED: *HR* LORazepam 2 MG/ML VIAL IVP ONE (22:31)
[2022-02-13] MEDS: Insulin LISPRO 300 UNITS/3 ML VIAL SUBQ SCH ×6 (00:15→20:40)
[2022-02-13] MEDS: Levothyroxine 25 MCG TABLET PO SCH (05:25)
[2022-02-13] MEDS: *HR* Heparin 5,000 UNIT/ML VIAL SQ SCH ×3 (05:25→21:47)
[2022-02-13] MEDS: Insulin DETEMIR 100 UNIT/ML X5UNITS SUBQ SCH (08:13)
[2022-02-13] MEDS: *HR* Promethazine 25 MG/ML VIAL IM PRN (08:28)
[2022-02-13] MEDS: cefTRIAXone 1,000 MG in 0.9 % Sodium Chloride 10 ML IVP SCH (08:40)
[2022-02-13 10:43] LABS: Hematocrit 28.4 % (35.3-44.9)
[2022-02-13 11:00] LABS: Albumin 3.2 g/dL (3.5-5.7); Albumin/Globulin Ratio 1.3 (1.1-2.2); Bilirubin,Total 0.7 mg/dL (0.3-1.0); Calcium 6.9 mg/dL (8.6-10.3); Globulin 2.5 g/dL (2.4-3.5); Magnesium 0.7 mg/dL (1.6-2.6); Phosphorous 2.4 mg/dL (2.7-4.5); Potassium 2.7 mEq/L (3.5-5.1); Total Protein 5.7 g/dL (6.4-8.9)
[2022-02-13] MEDS: Prochlorperazine 10 MG/2 ML VIAL IM PRN ×2 (11:27→20:41)
[2022-02-13] MEDS ORDERED: Calcium Gluconate 1gm/50mL 1 GM/50 ML BAG IVPB ONE (11:47)
[2022-02-13] MEDS ORDERED: Cholestyramine 4 GM POWD.PACK PO SCH (12:00)
[2022-02-13] MEDS ORDERED: 0.9 % Sodium Chloride 500 ML IV ONE (12:43)
[2022-02-13] MEDS ORDERED: 0.9 % Sodium Chloride 500 ML IV SCH (12:45)
[2022-02-13] MEDS ORDERED: Chloraseptic Spray 177 ML BOTTLE MM PRN (16:47)
[2022-02-13] MEDS: Cholestyramine 4 GM POWD.PACK PO SCH (19:49)
[2022-02-13 19:51] LABS: Calcium 8.3 mg/dL (8.6-10.3); Potassium 3.4 mEq/L (3.5-5.1)
[2022-02-13] MEDS ORDERED: Gabapentin 300 MG CAPSULE PO SCH (21:00)
[2022-02-14] MEDS: Insulin LISPRO 300 UNITS/3 ML VIAL SUBQ SCH ×4 (00:38→11:52)
[2022-02-14 02:22] LABS: Calcium 8.4 mg/dL (8.6-10.3); Magnesium 1.9 mg/dL (1.6-2.6); Phosphorous 2.6 mg/dL (2.7-4.5); Potassium 3.3 mEq/L (3.5-5.1)
[2022-02-14] MEDS: Levothyroxine 25 MCG TABLET PO SCH (05:55)
[2022-02-14] MEDS: *HR* Heparin 5,000 UNIT/ML VIAL SQ SCH (05:55)
[2022-02-14] MEDS ORDERED: Potassium Chloride Elixir 20 MEQ/15 ML UDC PO ONE ×2 (08:00→11:45)
[2022-02-14] MEDS: Cholestyramine 4 GM POWD.PACK PO SCH (08:42)
[2022-02-14] MEDS ORDERED: Magnesium Oxide 400 MG TABLET PO SCH (09:00)
[2022-02-14] MEDS: Insulin DETEMIR 100 UNIT/ML X5UNITS SUBQ SCH (10:23)
[2022-02-14 13:18] VITALS: BP 158/88; PULSE 99; TEMP 97.7; O2SAT 98
== END 2022-02-14 14:32 | disposition home or self-care (01) | DRG 420 ==
LOC: EMEROOARM 14:20 → 3NENU 14:20 → SUATTDRO 20:09 → 3NENU 21:30
PROVIDERS: ADMIT Internal Medicine; ATTEND Internal Medicine